=== PATIENT | male | born 1990 | race African-American/Black ===

== ENCOUNTER → 2019-01-01 | Outpatient (REF) | payer OTHER ==
[2019-01-01 22:08] LABS: CHLAMYDIA DNA AMPLIFICATION NEGATIVE (NEGATIVE); GC DNA AMPLIFICATION NEGATIVE (NEGATIVE)
== END ==
LOC: M SFHCLERA 17:56
PROVIDERS: ATTEND Physician Assistant
DX: N45.1 Epididymitis (principal)